=== PATIENT | male | born 1970 | race Caucasian/White ===

== ENCOUNTER 2016-08-04 05:22 | Emergency (ER) | payer SELFPAY ==
[2016-08-04 06:42] LABS: Anion Gap 19 mmol/L; BUN/Creatinine Ratio 11.11; Blood Urea Nitrogen 10 mg/dL (9-20); Calcium 9.2 mg/dL (8.4-10.2); Carbon Dioxide 21 mmol/L (22-30); Chloride 101.9 mmol/L (98-107); Glucose 121 mg/dL (75-100); Potassium 3.6 mmol/L (3.6-5.0); Sodium 138 mmol/L (137-145)
[2016-08-04 06:44] LABS: Basophils % (Auto) 0.4 % (0.0-1.8); Eosinophils % (Auto) 0.4 % (0.0-4.3); Hematocrit 44.3 % (35.5-45.6); Hemoglobin 14.7 gm/dl (11.8-15.2); Mean Corpuscular HGB Conc 33 % (32-34); Mean Corpuscular Hemoglobin 29 pg (28-32); Mean Corpuscular Volume 87 fl (84-94); Platelet Count 199 K/mm3 (140-440); Red Blood Count 5.07 M/mm3 (3.65-5.03); Red Cell Distribution Width 13.6 % (13.2-15.2); White Blood Count 15.4 K/mm3 (4.5-11.0)
[2016-08-04] MEDS ORDERED: ANTIVERT ONE (12:46)
[2016-08-04] MEDS ORDERED: REGLAN ONE (12:46)
[2016-08-04] MEDS ORDERED: NACL 0.9% 1000 ML 1,000 ML ONE (12:46)
[2016-08-04] MEDS ORDERED: REGLAN IV ONE (12:50)
[2016-08-04] MEDS ORDERED: NACL 0.9% 1000 ML IV ONE (12:50)
[2016-08-04] MEDS ORDERED: ANTIVERT PO ONE (12:50)
--- NOTE | 2016-08-04 13:35 | Cat Scan Report ---
CT scan of head without contrast: History: Headache and vertigo. Findings: Ventricles are normal in size and midline in location. No evidence of acute ischemia, hemorrhage or mass. No extra-axial fluid collection. Normal brainstem and cerebellum. Normal sinuses and mastoid air cells. Impression: Essentially negative CT scan of head.
--- NOTE | 2016-08-04 14:30 | Emergency Department Report ---
HPI - General Chief Complaint: Dizziness Time Seen by Provider: 08/04/16 12:38 - HPI HPI: Chief complaint: Vertigo and vomiting HPI: Patient complaining of nausea vomiting and vertigo since 6 PM last night. Patient had an episode of similar problem last Saturday but it spontaneously resolved. Patient had a headache last Saturday. Currently without a headache. Patient denies any upper respiratory signs or symptoms. Patient denies smoking. Patient states he's never been told he was hypertensive. Mode of arrival: private car Source: Patient Began: See above Duration: Since 6 PM last night Context: See above Quality: Currently pain-free Severity: 0 out of 10 Improved with: Holding still Worsened with: Standing and moving his head Associated signs and symptoms: Nausea vomiting ED Past Medical Hx - Past Medical History Previous Medical History?: No - Medications Home Medications: Home Medications Medication Instructions Recorded Confirmed Last Taken Type Meclizine [Antivert] 25 mg PO TID PRN #10 tablet 08/04/16 Unknown Rx amLODIPine [Norvasc] 5 mg PO DAILY #30 tab 08/04/16 Unknown Rx ED Review of Systems ROS: Stated complaint: WEAKNESS/DIZZINESS Other details as noted in HPI ROS Constitutional: No fever ENT: No uri symptoms Cardiovascular: No chest pain Respiratory: No sob or cough GI: No diarrhea : No dysuria frequency or urgency, Skin: No rash Neuro: No focal weakness or numbness Psych: No depression Anton/lymph: No edema Physical Exam - Physical Exam Vital Signs: Vital Signs 08/04/16 08/04/16 08/04/16 05:36 05:53 08:50 Temperature 97.8 F 97.8 F 98.0 F Pulse Rate 82 82 77 Respiratory 18 18 20 Rate Blood Pressure 151/102 141/93 Blood Pressure 151/102 [Right] O2 Sat by Pulse 100 100 100 Oximetry Physical Exam: GENERAL: The patient is well-developed well-nourished . HEENT: Normocephalic. Atraumatic. Extraocular motions are intact. Patient has moist mucous membranes. Positive nystagmus NECK: Supple. No meningitic signs are noted. There is no adenopathy noted. CHEST/LUNGS: Clear to auscultation. There is no respiratory distress noted. HEART/CARDIOVASCULAR: Regular. There is no tachycardia. There is no gallop rub or murmur. ABDOMEN: Abdomen is soft, nontender. Patient has normal bowel sounds. There is no abdominal distention. SKIN: There is no rash. There is no edema. There is no diaphoresis. NEURO: The patient is awake, alert, and oriented. The patient is cooperative. The patient has no focal neurologic deficits. The patient has normal speech. MUSCULOSKELETAL: There is no tenderness or deformity. There is no limitation range of motion. There is no evidence of acute injury. ED Course Vital Signs 08/04/16 08/04/16 08/04/16 05:36 05:53 08:50 Temperature 97.8 F 97.8 F 98.0 F Pulse Rate 82 82 77 Respiratory 18 18 20 Rate Blood Pressure 151/102 141/93 Blood Pressure 151/102 [Right] O2 Sat by Pulse 100 100 100 Oximetry - Reevaluation(s) Reevaluation #1: 08/04/16 Patient was given a liter of normal saline, Antivert and Reglan with improvement ED Medical Decision Making - Lab Data Result diagrams: 08/04/16 06:10 08/04/16 06:10 - Radiology Data Radiology results: report reviewed (CT head shows no acute process.) Critical care attestation.: If time is entered above; I have spent that time in minutes in the direct care of this critically ill patient, excluding procedure time. ED Disposition Clinical Impression: Essential hypertension Labyrinthitis Qualifiers: Laterality: unspecified laterality Qualified Code(s): H83.09 - Labyrinthitis, unspecified ear Disposition: DISCHARGED TO HOME OR SELFCARE Is pt being admited?: No Does the pt Need Aspirin: No Condition: Stable Instructions: Labyrinthitis (ED), Hypertension (ED) Prescriptions: amLODIPine [Norvasc] 5 mg PO DAILY #30 tab Meclizine [Antivert] 25 mg PO TID PRN #10 tablet PRN Reason: Vertigo Referrals: PRIMARY CAREMD [Primary Care Provider] - 3-5 Days FERNANDA LIEBERMAN MD [Staff Physician] - 3-5 Days (Dr. Lieberman is an ear nose and throat doctor free to follow-up with if your vertigo persists.) ALICIA TAVAREZ MD [Staff Physician] - 7-10 days (Dr. Tavarez is a primary care doctor for you to follow-up with for your hypertension) Time of Disposition: 14:29
[2016-08-04 17:13] VITALS: BP 161/71
== END 2016-08-04 15:00 | disposition home or self-care (01) ==
LOC: ED 05:22
DX: I10 Essential (primary) hypertension (principal); H83.09 Labyrinthitis, unspecified ear
CPT/HCPCS: 36415; 70450; 80048; 85025; 96361; 96374; 99284; J2765; J7030

== ENCOUNTER 2017-10-27 03:53 | Emergency (ER) | payer SELFPAY ==
[2017-10-27] MEDS ORDERED: NORCO 5/325 ONE (05:10)
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
[2017-10-27] MEDS ORDERED: NORCO 5/325 PO ONE (05:20)
[2017-10-27] MEDS ORDERED: CLEOCIN 900 MG/50 mL 900 MG/50 ML BAG IV ONE (05:33)
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
[2017-10-27] MEDS ORDERED: ATIVAN ONE (06:10)
[2017-10-27] MEDS ORDERED: ATIVAN IV ONE (06:10)
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
[2017-10-27 06:54] LABS: Hematocrit 43.4 % (35.5-45.6); Hemoglobin 14.7 gm/dl (11.8-15.2); Mean Corpuscular HGB Conc 34 % (32-34); Mean Corpuscular Hemoglobin 30 pg (28-32); Mean Corpuscular Volume 88 fl (84-94); Platelet Count 208 K/mm3 (140-440); Red Blood Count 4.92 M/mm3 (3.65-5.03); Red Cell Distribution Width 13.8 % (13.2-15.2)
[2017-10-27 07:02] LABS: BUN/Creatinine Ratio 14; Blood Urea Nitrogen 13 mg/dL (9-20); Calcium 8.6 mg/dL (8.4-10.2); Hemolysis Index 8; INR 0.95 (0.87-1.13)
[2017-10-27 07:03] LABS: Partial Thromboplastin Time 29.1 Sec. (24.2-36.6)
[2017-10-27 07:07] VITALS: BP 141/82
[2017-10-27 07:58] LABS: Band Neutrophils # (Manual) 1.4 K/mm3; Basophils % (Manual) 0 % (0.0-1.8); Total Cells Counted 100
[2017-10-27 07:59] LABS: Anisocytosis 1+; Eosinophils % (Manual) 0 % (0.0-4.3); Platelet Estimate Consistent w Auto
== END 2017-10-27 07:12 | disposition other institution (70) ==
LOC: ED 03:53
DX: S02.40EA Zygomatic fracture, right side, initial encounter for closed fracture (principal); S02.81XA Fracture of other specified skull and facial bones, right side, initial encounter for closed fracture; I10 Essential (primary) hypertension; F17.200 Nicotine dependence, unspecified, uncomplicated; Y04.8XXA Assault by other bodily force, initial encounter; Y93.89 Activity, other specified; Y92.89 Other specified places as the place of occurrence of the external cause; Y99.8 Other external cause status; H05.20 Unspecified exophthalmos
CPT/HCPCS: 36415; 70450; 70486; 80048; 82550; 85007; 85025; 85610; 85730; 96365; 96375; 99285; J2060

== ENCOUNTER 2018-02-08 07:49 | Emergency (ER) | payer SELFPAY ==
[2018-02-08] MEDS ORDERED: ASPIRIN PO ONE (08:32)
[2018-02-08 09:25] LABS: Basophils # (Auto) 0.1 K/mm3 (0.0-0.1); Basophils % (Auto) 1.1 % (0.0-1.8); Eosinophils # (Auto) 0.7 K/mm3 (0.0-0.4); Eosinophils % (Auto) 7.3 % (0.0-4.3); Hematocrit 43.9 % (35.5-45.6); Hemoglobin 15.3 gm/dl (11.8-15.2); Lymphocytes # (Auto) 1.8 K/mm3 (1.2-5.4); Mean Corpuscular HGB Conc 35 % (32-34); Mean Corpuscular Hemoglobin 31 pg (28-32); Mean Corpuscular Volume 88 fl (84-94); Monocytes # (Auto) 0.7 K/mm3 (0.0-0.8); Monocytes % (Auto) 7.7 % (0.0-7.3); Platelet Count 218 K/mm3 (140-440); Red Blood Count 4.99 M/mm3 (3.65-5.03); Red Cell Distribution Width 14.1 % (13.2-15.2)
[2018-02-08 09:35] LABS: INR 0.91 (0.87-1.13)
[2018-02-08 09:36] LABS: Partial Thromboplastin Time 33.4 Sec. (24.2-36.6)
[2018-02-08 09:46] LABS: BUN/Creatinine Ratio 12; Blood Urea Nitrogen 11 mg/dL (9-20); Calcium 9.7 mg/dL (8.4-10.2); Hemolysis Index 13
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
[2018-02-08] MEDS ORDERED: CATAPRES PO ONE (14:15)
--- NOTE | 2018-02-08 14:27 | Emergency Department Report ---
HPI - General Chief Complaint: High BP Time Seen by Provider: 02/08/18 13:58 - HPI HPI: Room 24 The patient is a 47-year-old male presenting with chief complaint of headache and dizziness. The patient states 3 days ago he developed a cramp in his neck as well as headache fatigue. The patient states he checked his blood pressure was found to be hypertensive at 187/130. Patient states his symptoms continue to come and go and he noticed his blood pressure was persistently elevated probably him to come to the ED. Patient denies nausea or vomiting. The patient states he is given a prescription for amlodipine last year but he did not know that he needed to continue to take it after he ran out. Patient gives his headache a score of 7-8/10 Location: [See above] Duration: [See above] Quality: Headache Severity: 7-8/10 Modifying factors: [see above] Context: [see above] Mode of transportation: [not driving] ED Past Medical Hx - Past Medical History Hx Hypertension: Yes - Surgical History Past Surgical History?: No - Family History Family history: no significant - Social History Smoking Status: Former Smoker (none 1 week) Substance Use Type: None (denies illicit drug use), Alcohol (occasional) - Medications Home Medications: Home Medications Medication Instructions Recorded Confirmed Last Taken Type Meclizine [Antivert] 25 mg PO TID PRN #10 tablet 08/04/16 Unknown Rx amLODIPine [Norvasc] 5 mg PO DAILY #90 tab 02/08/18 Unknown Rx ED Review of Systems ROS: Stated complaint: HIGH BLOOD PRESSURE Other details as noted in HPI Constitutional: no symptoms reported Eyes: vision change ENT: denies: throat pain Respiratory: no symptoms reported Cardiovascular: denies: chest pain Endocrine: no symptoms reported Gastrointestinal: denies: nausea, vomiting Genitourinary: denies: dysuria Musculoskeletal: denies: back pain Neurological: headache Physical Exam - Physical Exam Vital Signs: Vital Signs 02/08/18 08:23 Temperature 98.5 F Pulse Rate 84 Blood Pressure 178/124 O2 Sat by Pulse 99 Oximetry Physical Exam: GENERAL: The patient is well-developed well-nourished male lying on stretcher not appearing to be in acute distress. [] HEENT: Normocephalic. Atraumatic. Extraocular motions are intact. Patient has moist mucous membranes. NECK: Supple. No meningitic signs are noted. Trachea midline CHEST/LUNGS: Clear to auscultation. There is no respiratory distress noted. HEART/CARDIOVASCULAR: Regular. There is no tachycardia. There is no gallop rub or murmur. ABDOMEN: Abdomen is soft, nontender. Patient has normal bowel sounds. There is no abdominal distention. SKIN: There is no rash. There is no edema. There is no diaphoresis. NEURO: The patient is awake, alert, and oriented. The patient is cooperative. The patient has no focal neurologic deficits. The patient has normal speech. Cranial nerves II through XII grossly intact, no drift MUSCULOSKELETAL: There is no evidence of acute injury. ED Course Vital Signs 02/08/18 08:23 Temperature 98.5 F Pulse Rate 84 Blood Pressure 178/124 O2 Sat by Pulse 99 Oximetry ED Medical Decision Making - Lab Data Result diagrams: 02/08/18 09:06 02/08/18 09:06 Laboratory Tests 02/08/18 02/08/18 02/08/18 09:06 09:06 09:06 WBC 9.4 RBC 4.99 Hgb 15.3 H Hct 43.9 MCV 88 MCH 31 MCHC 35 H RDW 14.1 Plt Count 218 Lymph % (Auto) 19.0 [place] % (Auto) 7.7 H Eos % (Auto) 7.3 H Baso % (Auto) 1.1 Lymph # 1.8 [place] # 0.7 Eos # 0.7 H Baso # 0.1 Seg Neutrophils % 64.9 Seg Neutrophils # 6.1 PT 12.8 INR 0.91 APTT 33.4 Sodium 139 Potassium 3.6 Chloride 101.5 Carbon Dioxide 27 Anion Gap 14 BUN 11 Creatinine 0.9 Estimated GFR > 60 BUN/Creatinine Ratio 12 Glucose 88 Calcium 9.7 Troponin T < 0.010 02/08/18 11:26 WBC RBC Hgb Hct MCV MCH MCHC RDW Plt Count Lymph % (Auto) [place] % (Auto) Eos % (Auto) Baso % (Auto) Lymph # [place] # Eos # Baso # Seg Neutrophils % Seg Neutrophils # PT INR APTT Sodium Potassium Chloride Carbon Dioxide Anion Gap BUN Creatinine Estimated GFR BUN/Creatinine Ratio Glucose Calcium Troponin T < 0.010 - EKG Data -: EKG Interpreted by Al EKG shows normal: sinus rhythm Rate: normal - EKG Data When compared to previous EKG there are: previous EKG unavailable Interpretation: nonspecific ST-T wave irma (T-wave inversion in lead aVL) - Radiology Data Radiology results: report reviewed (CT head), image reviewed (CT head) [facility] [address] [place] [address] Cat Scan Report Signed Patient: JUANJO MONTOYA MR#: [id number] : Acct:[id number] Age/Sex: 47 / M ADM Date: 02/08/18 Loc: ED Attending Dr: Ordering Physician: RADHA LANDON MD Date of Service: 02/08/18 Procedure(s): CT head/brain wo con Accession Number(s): [id number] cc: RADHA LANDON MD FINAL REPORT EXAM: CT HEAD/BRAIN WO CON HISTORY: hypertension, headache, dizziness TECHNIQUE: CT examination of the head without IV contrast PRIORS: 10/27/2017 FINDINGS: There is again medial displacement of the right medial orbital wall containing orbital fat contents. This is compatible with a healed stable right lamina papyracea fracture, or blow-in type fracture. Interval resolution of right proptosis. Interval healing posterior right zygomatic arch fracture. Slightly greater chronic appearing mucosal thickening anterior inferior left sphenoid sinus. Other paranasal sinuses are clear as are the mastoid air cells and middle ear cavities. No acute air-fluid level visualized in the included air -filled sinuses. Bone windows demonstrate no acute fracture. The brain is without mass, mass effect, hemorrhage, or acute infarct. There is no extra- axial intracranial bleed, brain bleed, or midline shift. The ventricles and sulci are age-appropriate. IMPRESSION: No acute CVA, intracranial bleed, or brain mass Healed fracture of the medial right orbit wall Transcribed By: TELLO Dictated By: JOHNY LEAL MD Electronically Authenticated By: JOHNY LEAL MD Signed Date/Time: 02/08/18 1300 DD/ 1300 TD/TT: 02/08/18 1300 - Differential Diagnosis hypertension, ICH Critical care attestation.: If time is entered above; I have spent that time in minutes in the direct care of this critically ill patient, excluding procedure time. ED Disposition Clinical Impression: Hypertension, Headache Disposition: DC-01 TO HOME OR SELFCARE Is pt being admited?: No Does the pt Need Aspirin: No Condition: Stable Instructions: Hypertension (ED) Additional Instructions: Return to the emergency department immediately should you develop worsening symptoms, fever, inability to tolerate food or liquid or any other concerns. Prescriptions: amLODIPine [Norvasc] 5 mg PO DAILY #90 tab Referrals: [facility] [Outside] - 3-5 Days LOVE BROWNE MD [Staff Physician] - 3-5 Days (Dr. Browne is a primary physician. Please follow-up with him or another general practitioner for further management of your high blood pressure) Time of Disposition: 15:52
[2018-02-08] MEDS ORDERED: NORVASC PO ONE (15:51)
[2018-02-08 16:34] VITALS: BP 170/103
== END 2018-02-08 16:05 | disposition home or self-care (01) ==
LOC: ED 07:49
DX: R51 Headache (principal); R42 Dizziness and giddiness; I10 Essential (primary) hypertension; Z87.891 Personal history of nicotine dependence
CPT/HCPCS: 36415; 70450; 80048; 84484; 85025; 85610; 85730; 93005; 93010; 99284